=== PATIENT | male | born 1970 | race Caucasian/White ===

== ENCOUNTER 2019-04-15 15:30 | Observation (INO) | payer BC ==
[~2019-04-15] VITALS: Ht 177.8 cm; Wt 86.2 kg
--- NOTE | 2019-04-15 15:40 | Emergency Room Report ---
History of Present Illness General Chief Complaint: Chest Pain Source: Patient, Friend, EMS Present Illness HPI Patient presents with chest pain and alteration in speech. He just finished cardio workout and stepped outside and smoked some cannabis. He felt palpitations some pressure in his chest and had difficulty speaking for a couple of seconds. He denies headache during that time. Paramedics were summoned. His heart rate was 140 at that time. It started slowing down in route. He was not complaining about chest pain until in route and they did not give him aspirin or nitrates. He denies use of SEDs. He has slight tingling in the upper lip on the right-hand side. They claim that the cannabis is not a new batch and it's bought retail. They deny other drugs at this time. Twelve- lead in the field was sinus tachycardia Patient on low-dose lisinopril and Crestor. He denies smoking cigarettes. No family history or diabetes. No fevers, chills, sore throat, cough, nausea, vomiting diarrhea, diarrhea or dysuria joint pain. No family history of blood clots. No recent history of immobilization. No calf pain or edema. Allergies: Coded Allergies: No Known Allergies (Unverified , 04/15/19) Patient History Past Medical History: see triage record Social History: Reports: drug use; Denies: smoking Social History Narrative felt cutter Reviewed Nursing Documentation: PMH: Agreed; PSxH: Agreed Nursing Documentation-PMH Past Medical History: No Stated History Review of Systems All Other Systems: negative except mentioned in HPI Physical Exam Vital Signs Date Time Temp Pulse Resp B/P (MAP) Pulse Ox O2 Delivery O2 Flow Rate FiO2 04/15/19 15:31 98.1 122 18 166/87 (113) 99 Room Air Sp02 EP Interpretation: reviewed, normal General Appearance: alert, GCS 15 Head: normocephalic Eyes: bilateral eye PERRL, bilateral eye EOMI, bilateral eye Scleral Injection ENT: moist mucus membranes Neck: supple Respiratory: lungs clear, normal breath sounds Cardiovascular #1: no edema, tachycardia Cardiovascular #2: 2+ radial (R) Gastrointestinal: normal inspection, normal bowel sounds, non tender, no mass, non-distended Genitourinary: no CVA tenderness Musculoskeletal: back normal, normal range of motion, no calf tenderness, gait/ station normal, Maia's Sign negative Neurologic: alert, motor strength/tone normal, 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 Differential includes acute myocardial infarction, TIA, arrhythmia, acute coronary syndrome, electrolyte imbalance, substance ingestion, anxiety amongst others. Patient evaluated EKG, chest x-ray, CT the head and labs. Patient will receive IV hydration and aspirin. The patient is placed on a allergy specialist. EKG sinus tachycardia 123 with voltage criteria for LVH. Nonspecific ST-T wave changes. Labs remarkable for leukocytosis, renal insufficiency, minimally low potassium, mild elevated CK and tox screen positive for THC. Patient request treatment with Ativan. Improved after Ativan however still tachycardic. Patient requests to be able to be discharged. Due to the symptom complex and persistent tachycardia and abnormal labs patient admitted for observation. Laboratory Tests Test 04/15/19 15:35 04/15/19 15:40 04/15/19 19:20 White Blood Count 16.1 K/UL (4.8-10.8) H Red Blood Count 5.60 M/UL (4.70-6.10) Hemoglobin 16.9 G/DL (14.2-18.0) Hematocrit 49.8 % (42.0-52.0) Mean Corpuscular Volume 89 FL (80-99) Mean Corpuscular Hemoglobin 30.1 PG (27.0-31.0) Mean Corpuscular Hemoglobin Concent 33.9 G/DL (32.0-36.0) Red Cell Distribution Width 13.9 % (11.6-14.8) Platelet Count 194 K/UL (150-450) Mean Platelet Volume 7.9 FL (6.5-10.1) Neutrophils (%) (Auto) 52.6 % (45.0-75.0) Lymphocytes (%) (Auto) 36.5 % (20.0-45.0) Monocytes (%) (Auto) 8.2 % (1.0-10.0) Eosinophils (%) (Auto) 1.6 % (0.0-3.0) Basophils (%) (Auto) 1.1 % (0.0-2.0) Prothrombin Time 11.0 SEC (9.30-11.50) Prothrombin Time INR 1.0 (0.9-1.1) Activated Partial Thromboplast Time 23 SEC (23-33) Sodium Level 143 MMOL/L (136-145) Potassium Level 3.3 MMOL/L (3.5-5.1) L Chloride Level 102 MMOL/L (98-107) Carbon Dioxide Level 26 MMOL/L (21-32) Anion Gap 15 mmol/L (5-15) Blood Urea Nitrogen 23 mg/dL (7-18) H Creatinine 1.5 MG/DL (0.55-1.30) H Estimate Glomerular Filtration Rate 50.2 mL/min (>60) Glucose Level 104 MG/DL (74-106) Calcium Level 9.4 MG/DL (8.5-10.1) Total Bilirubin 0.5 MG/DL (0.2-1.0) Aspartate Amino Transferase (AST) 26 U/L (15-37) Alanine Aminotransferase (ALT) 41 U/L (12-78) Alkaline Phosphatase 65 U/L (46-116) Total Creatine Kinase 456 U/L (26-308) H Troponin I 0.000 ng/mL (0.000-0.056) 0.028 ng/mL (0.000-0.056) Pro-B-Type Natriuretic Peptide 19 pg/mL (0-125) Total Protein 7.4 G/DL (6.4-8.2) Albumin 3.9 G/DL (3.4-5.0) Globulin 3.5 g/dL Albumin/Globulin Ratio 1.1 (1.0-2.7) Urine Color Yellow Urine Appearance Slightly cloudy Urine pH 5 (4.5-8.0) Urine Specific [place] 1.020 (1.005-1.035) Urine Protein 2+ (NEGATIVE) H Urine Glucose (UA) Negative (NEGATIVE) Urine Ketones 1+ (NEGATIVE) H Urine Blood 1+ (NEGATIVE) H Urine Nitrite Negative (NEGATIVE) Urine Bilirubin Negative (NEGATIVE) Urine Urobilinogen 1 MG/DL (0.0-1.0) H Urine Leukocyte Esterase 1+ (NEGATIVE) H Urine RBC 0-2 /HPF (0 - 0) H Urine WBC 2-4 /HPF (0 - 0) Urine Squamous Epithelial Cells Occasional /LPF Urine Bacteria Few /HPF (NONE) Urine Mucus Moderate /LPF (NONE/OCC) H Urine Opiates Screen Negative (NEGATIVE) Urine Barbiturates Screen Negative (NEGATIVE) Phencyclidine (PCP) Screen Negative (NEGATIVE) Urine Amphetamines Screen Negative (NEGATIVE) Urine Benzodiazepines Screen Negative (NEGATIVE) Urine Cocaine Screen Negative (NEGATIVE) Urine Marijuana (THC) Screen Positive (NEGATIVE) H Magnesium Level 1.5 MG/DL (1.8-2.4) L EKG Diagnostic Results Rate: tachycardiac Rhythm: NSR ST Segments: no acute changes - LVH and nonspecific ST-T wave changes Rhythm Strip Diag. Results EP Interpretation: yes Rhythm: no PVC's, no ectopy, other - Sinus tachycardia Chest X-Ray Diagnostic Results Chest X-Ray Diagnostic Results : Chest X-Ray Ordered: Yes # of Views/Limited/Complete: 1 View Indication: Chest Pain EP Interpretation: Yes Interpretation: no consolidation, no effusion, no pneumothorax Impression: No acute disease Electronically Signed by: Electronically signed by Lavelle Polanco MD Last Vital Signs Date Time Temp Pulse Resp B/P (MAP) Pulse Ox O2 Delivery O2 Flow Rate FiO2 04/15/19 21:00 Room Air 04/15/19 20:00 83 04/15/19 18:20 98.1 18 139/81 (100) 99 At admission patient's heart rate 112 Status: improved Disposition: PLACE IN OBSERVATION Condition: Serious Lavelle Polanco MD Apr 15, 2019 15:40
[2019-04-15 15:44] VITALS: BP 166/87
[2019-04-15 15:50] LABS: BASOPHILS % (AUTO) 1.1 % (0.0-2.0); EOSINOPHILS % (AUTO) 1.6 % (0.0-3.0); HEMATOCRIT 49.8 % (42.0-52.0); HEMOGLOBIN 16.9 G/DL (14.2-18.0); LYMPHOCYTES % (AUTO) 36.5 % (20.0-45.0); MEAN CORPUSCULAR VOLUME 89 FL (80-99); MONOCYTES % (AUTO) 8.2 % (1.0-10.0); NEUTROPHILS % (AUTO) 52.6 % (45.0-75.0); PLATELET COUNT 194 K/UL (150-450); RED CELL DISTRIBUTION WIDTH 13.9 % (11.6-14.8); WHITE BLOOD COUNT 16.1 K/UL (4.8-10.8)
[2019-04-15] MEDS ORDERED: LORazepam Inj 2mg/ml 1ml IV ONE (16:00)
[2019-04-15 16:03] LABS: BILIRUBIN, URINE NEGATIVE (NEGATIVE); GLUCOSE, URINE (UA) NEGATIVE (NEGATIVE); KETONES,URINE 1+ (NEGATIVE); LEUKOCYTE ESTERASE ,URINE 1+ (NEGATIVE); NITRITE,URINE NEGATIVE (NEGATIVE); PH,URINE 5 (4.5-8.0); PROTEIN,URINE 2+ (NEGATIVE); UROBILINOGEN,URINE 1 MG/DL (0.0-1.0)
[2019-04-15 16:09] LABS: APPEARANCE,URINE SLIGHTLY CLOUDY; COLOR,URINE YELLOW
[2019-04-15 16:15] LABS: ANION GAP 15 mmol/L (5-15); BLOOD UREA NITROGEN 23 mg/dL (7-18); CALCIUM 9.4 MG/DL (8.5-10.1); CARBON DIOXIDE 26 MMOL/L (21-32); CHLORIDE 102 MMOL/L (98-107); CREATININE 1.5 MG/DL (0.55-1.30); POTASSIUM 3.3 MMOL/L (3.5-5.1); SODIUM 143 MMOL/L (136-145)
[2019-04-15 16:26] LABS: ALANINE AMINOTRANSFERASE 41 U/L (12-78); ALBUMIN 3.9 G/DL (3.4-5.0); ALBUMIN/GLOBULIN RATIO 1.1 (1.0-2.7); ALKALINE PHOSPHATASE 65 U/L (46-116); ASPARTATE AMINO TRANSFERASE 26 U/L (15-37); BILIRUBIN,TOTAL 0.5 MG/DL (0.2-1.0); CREATINE KINASE 456 U/L (26-308)
[2019-04-15 16:34] VITALS: BP 150/88
[2019-04-15 17:04] VITALS: BP 136/74
--- NOTE | 2019-04-15 17:16 | Diagnostic Imaging Report ---
Indications: Headache, alteration speech Technique: Spiral acquisitions obtained through the brain. Angled axial and coronal 5 x 5 mm slices were reconstructed. Total dose length product 1018 mGycm. CTDI vol(s) 53 mGy. Dose reduction achieved using automated exposure control Comparison: None. Findings: No acute intracranial hemorrhage or edema. No mass effect nor midline shift. Normal meeks-white differentiation. Normal size ventricles and extra axial CSF spaces. The calvarium is intact. Visualized orbits are unremarkable. There is mucosal thickening of the left maxillary sinus Impression: Negative for acute intracranial bleed or mass effect Minimal sinus disease The CT scanner at [facility] is accredited by the [employer] and the scans are performed using protocols designed to limit radiation exposure to as low as reasonably achievable to attain images of sufficient resolution adequate for diagnostic evaluation.
[2019-04-15] MEDS ORDERED: CRESTOR10 M2 ORAL (17:28)
[2019-04-15] MEDS ORDERED: PROSCAR5 MG ORAL (17:28)
[2019-04-15] MEDS ORDERED: PRESERVISION L1 EACH PO (17:28)
[2019-04-15] MEDS ORDERED: COQ-10100 M1 PO (17:28)
[2019-04-15 18:20] VITALS: BP 139/81
[2019-04-15] MEDS ORDERED: Morphine Sulfate 2mg/ml Inj(IV/IM USE ONLY) IVP PRN (18:45)
[2019-04-15] MEDS ORDERED: Milk of Magnesia 30ml Ud ORAL PRN (18:45)
[2019-04-15] MEDS ORDERED: Nitroglycerin Subl 0.4mg tab SL PRN (18:45)
--- NOTE | 2019-04-15 19:47 | History and Physical ---
History of Present Illness General Reason for Hospitalization: Chest Pain Present Illness HPI 48-year-old male with PMH of mixed dyslipidemia, otherwise healthy who presents to ED for tachycardia, CP and aphasia. Patient was in his usual state of health when he went to workout at the gym, was lifting weights, then proceeded to smoke marijuana after he worked out. He had a brief episode of a aphasia now resolved, then subsequent tachycardia and chest pain. He called EMS and was found to have HR of 140s. In the ED, HR 120s and upon arrival to floor was in the high 90s. Patient denies any further episodes of CP, denied S OB, diaphoresis or previous episodes in the past. Patient states he usually smokes marijuana nightly to help him sleep and has never had an episode like this in the past. States he usually gets his marijuana from the same vendor. Patient does note family history is significant for grandfather having triple bypass CABG in his 50s. Patient currently denies any numbness, tingling, LALA, vision changes, S OB, abdominal pain, dysuria, constipation. 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 marijuana qhs Allergies: NKDA Allergies: Coded Allergies: No Known Allergies (Unverified , 04/15/19) Medication History Scheduled Finasteride* (Proscar*), 5 MG ORAL DAILY, (Reported) Rosuvastatin Calcium* (Crestor*), 10 MG ORAL DAILY, (Reported) Ubidecarenone (Coq-10), 200 MG PO TWICE A DAY, (Reported) Vit C/Rosario Ac/Lut/Copper/Znox (Preservision Lutein Softgel), 1 EACH PO DAILY, ( Reported) Patient History Healthcare decision maker Resuscitation status Advanced Directive on File No Review of Systems Constitutional: Denies: no symptoms, see HPI, chills, sweats, fever, malaise, weakness, other Eye: Denies: no symptoms, see HPI, eye pain, blurred vision, tearing, double vision, nose pain, nose congestion, acuity changes, discharge, other ENT: Denies: no symptoms, see HPI, ear pain, ear discharge, nose pain, nose congestion, throat pain, throat swelling, mouth pain, hearing loss, nasal discharge, other Respiratory: Denies: no symptoms, see HPI, cough, orthopnea, shortness of breath, stridor, wheezing, LUX, sputum, other Cardiovascular: Denies: no symptoms, see HPI, chest pain, edema, palpitations, syncope, PND, other Gastrointestinal: Denies: no symptoms, see HPI, abdominal pain, constipation, diarrhea, nausea, vomiting, melena, hematemesis, other Genitourinary: Denies: no symptoms, see HPI, discharge, dysuria, frequency, hematuria, pain, retention, incontinence, urgency, vag bleed/dc, other Musculoskeletal: Denies: no symptoms, see HPI, back pain, gout, joint pain, joint swelling, muscle pain, muscle stiffness, other Skin: Denies: no symptoms, see HPI, rash, change in color, change in hair/nails , dryness, lesions, other Psychiatric: Denies: no symptoms, see HPI, prior hx, anxiety, depressed feelings, emotional problems, SI, HI, hallucinations, other Neurological: Denies: no symptoms, see HPI, headache, numbness, paresthesia, seizure, tingling, tremors, focal weakness, syncope, dizziness, other Endocrine: Denies: no symptoms, see HPI, excessive sweating, flushing, intolerance to temperature, increased thirst, increased urine, unexplained weight loss, other Physical Exam Last 24 Hour Vital Signs Date Time Temp Pulse Resp B/P (MAP) Pulse Ox O2 Delivery O2 Flow Rate FiO2 04/15/19 18:20 98.1 86 18 139/81 (100) 99 04/15/19 17:04 98.1 99 18 136/74 99 Room Air 04/15/19 16:34 98.1 104 18 150/88 99 Room Air 04/15/19 15:44 122 18 Room Air 04/15/19 15:44 98.1 125 18 166/87 99 Room Air 04/15/19 15:31 98.1 122 18 166/87 (113) 99 Room Air Laboratory Tests Test 04/15/19 15:35 04/15/19 15:40 04/15/19 19:20 White Blood Count 16.1 K/UL (4.8-10.8) H Red Blood Count 5.60 M/UL (4.70-6.10) Hemoglobin 16.9 G/DL (14.2-18.0) Hematocrit 49.8 % (42.0-52.0) Mean Corpuscular Volume 89 FL (80-99) Mean Corpuscular Hemoglobin 30.1 PG (27.0-31.0) Mean Corpuscular Hemoglobin Concent 33.9 G/DL (32.0-36.0) Red Cell Distribution Width 13.9 % (11.6-14.8) Platelet Count 194 K/UL (150-450) Mean Platelet Volume 7.9 FL (6.5-10.1) Neutrophils (%) (Auto) 52.6 % (45.0-75.0) Lymphocytes (%) (Auto) 36.5 % (20.0-45.0) Monocytes (%) (Auto) 8.2 % (1.0-10.0) Eosinophils (%) (Auto) 1.6 % (0.0-3.0) Basophils (%) (Auto) 1.1 % (0.0-2.0) Prothrombin Time 11.0 SEC (9.30-11.50) Prothromb Time International Ratio 1.0 (0.9-1.1) Activated Partial Thromboplast Time 23 SEC (23-33) Sodium Level 143 MMOL/L (136-145) Potassium Level 3.3 MMOL/L (3.5-5.1) L Chloride Level 102 MMOL/L (98-107) Carbon Dioxide Level 26 MMOL/L (21-32) Anion Gap 15 mmol/L (5-15) Blood Urea Nitrogen 23 mg/dL (7-18) H Creatinine 1.5 MG/DL (0.55-1.30) H Estimat Glomerular Filtration Rate 50.2 mL/min (>60) Glucose Level 104 MG/DL (74-106) Calcium Level 9.4 MG/DL (8.5-10.1) Total Bilirubin 0.5 MG/DL (0.2-1.0) Aspartate Amino Transf (AST/SGOT) 26 U/L (15-37) Alanine Aminotransferase (ALT/SGPT) 41 U/L (12-78) Alkaline Phosphatase 65 U/L (46-116) Total Creatine Kinase 456 U/L (26-308) H Troponin I 0.000 ng/mL (0.000-0.056) Pending Pro-B-Type Natriuretic Peptide 19 pg/mL (0-125) Total Protein 7.4 G/DL (6.4-8.2) Albumin 3.9 G/DL (3.4-5.0) Globulin 3.5 g/dL Albumin/Globulin Ratio 1.1 (1.0-2.7) Urine Color Yellow Urine Appearance Slightly cloudy Urine pH 5 (4.5-8.0) Urine Specific [place] 1.020 (1.005-1.035) Urine Protein 2+ (NEGATIVE) H Urine Glucose (UA) Negative (NEGATIVE) Urine Ketones 1+ (NEGATIVE) H Urine Blood 1+ (NEGATIVE) H Urine Nitrite Negative (NEGATIVE) Urine Bilirubin Negative (NEGATIVE) Urine Urobilinogen 1 MG/DL (0.0-1.0) H Urine Leukocyte Esterase 1+ (NEGATIVE) H Urine RBC 0-2 /HPF (0 - 0) H Urine WBC 2-4 /HPF (0 - 0) Urine Squamous Epithelial Cells Occasional /LPF Urine Bacteria Few /HPF (NONE) Urine Mucus Moderate /LPF (NONE/OCC) H Urine Opiates Screen Negative (NEGATIVE) Urine Barbiturates Screen Negative (NEGATIVE) Phencyclidine (PCP) Screen Negative (NEGATIVE) Urine Amphetamines Screen Negative (NEGATIVE) Urine Benzodiazepines Screen Negative (NEGATIVE) Urine Cocaine Screen Negative (NEGATIVE) Urine Marijuana (THC) Screen Positive (NEGATIVE) H Magnesium Level Pending Height (Feet): 5 Height (Inches): 10.00 Weight (Pounds): 190 Medications Current Medications Medications (Trade) Dose Ordered Sig/Toni Route PRN Reason Start Time Stop Time Status Last Admin Dose Admin Acetaminophen (Tylenol) 650 mg Q4H PRN ORAL Mild Pain (Pain Scale 1-3) 04/15/19 18:45 05/15/19 18:44 Bisacodyl (Dulcolax) 10 mg HSPRN PRN RECTAL Constipation 04/15/19 18:45 05/15/19 18:44 Dextrose (Dextrose 50%) 25 ml Q30M PRN IV Hypoglycemia 04/15/19 18:45 05/15/19 18:44 Dextrose (Dextrose 50%) 50 ml Q30M PRN IV Hypoglycemia 04/15/19 18:45 05/15/19 18:44 Hydralazine HCl (Apresoline) 10 mg Q4H PRN IV For High Blood Pressure 04/15/19 18:45 05/15/19 18:44 Magnesium Hydroxide (Mom) 30 ml HSPRN PRN ORAL Constipation 04/15/19 18:45 05/15/19 18:44 Morphine Sulfate (Morphine Sulfate) 2 mg Q2H PRN IVP For Pain 04/15/19 18:45 04/22/19 18:44 Nitroglycerin (Ntg) 0.4 mg Q5M X 3 DOSES PRN SL Prn Chest Pain 04/15/19 18:45 05/15/19 18:44 Ondansetron HCl (Zofran) 4 mg Q6H PRN IVP Nausea & Vomiting 04/15/19 18:45 05/15/19 18:44 Potassium Chloride (K-Dur) 20 meq ONCE ORAL 04/15/19 19:00 04/15/19 21:00 Sodium Chloride 1,000 ml @ 75 mls/hr [id number] IV 04/15/19 19:00 04/16/19 18:59 Objective Narrative General: WDWN male, in NAD, A&O x 3 HEENT: NCAT, EOMi, PEERLA, nares patent and no symmetrical, no tonsillar exudates, mucous membranes moist CV: RRR, no murmurs, rubs, or gallops Pulm: CTAB, No wheezes, rhonchi, or rales, no accessory muscle usage or conversational dyspnea GI: Soft, nontender, nondistended, bowel sounds present Neuro: CN 2-12 grossly intact bilaterally, no focal signs. Ext: No lower extremity edema bilaterally Skin: no rashes lesions or ulcers Msk: Joints symmetrical in upper extremity and lower extremity bilaterally, no joint swelling. No reproducible pain upon anterior chest wall palpation Lymph: No lymphadenopathy in upper extremity and lower extremity Assessment/Plan Assessment/Plan: 48-year-old male with PMH of mixed dyslipidemia, otherwise healthy who presents to ED for tachycardia, CP and aphasia. In the ED, troponin negative x1, patient noted with mild leukocytosis, WBC 16, and mild FLAQUITO with Cr 1.5, CK 456. #Chest pain/palpitations Admit to telemetry, obs Rule out TN May be multifactorial/substance induced U tox positive for marijuana EKG: Sinus tach trop negative x1, cont to monitor trops x2 ASA nitro PRN for chest pain Holding statin 2/2 elevated CK carotid US ordered Cardio Consulted given family hx, Dr. Izaguirre, recs appreciated #Aphasia - resolved likely substance induced U tox positive for marijuana CT Head negative for acute process Neuro checks cont. to monitor #FLAQUITO likely 2/2 dehydration given pt's hx (was working out) Cr 1.5 cont. IVF recheck in AM holding home lisinopril 5 mg for now avoid nephrotoxic meds #Mixed Dyslipidemia holding home statin, crestor 10 mg, 2/2 elevated CK lipid panel in AM #elevated CK not within rhabdo range, 456 on admission likely 2/2 to dehydration given pt hx (recent workout and has not been drinking fluids) IVF cont. to monitor DVT ppx: SCDs, encourage ambulation Time spent 70 mins, >50% time spent pt counseling, coordination of care Magaly Garcia M.D. Apr 15, 2019 19:47
[2019-04-16 07:51] LABS: BASOPHILS % (AUTO) 1.2 % (0.0-2.0); EOSINOPHILS % (AUTO) 2.9 % (0.0-3.0); HEMATOCRIT 44.5 % (42.0-52.0); HEMOGLOBIN 16.1 G/DL (14.2-18.0); LYMPHOCYTES % (AUTO) 30.6 % (20.0-45.0); MEAN CORPUSCULAR VOLUME 87 FL (80-99); MONOCYTES % (AUTO) 8.9 % (1.0-10.0); NEUTROPHILS % (AUTO) 56.4 % (45.0-75.0); PLATELET COUNT 143 K/UL (150-450); RED BLOOD COUNT 5.12 M/UL (4.70-6.10); RED CELL DISTRIBUTION WIDTH 12.9 % (11.6-14.8)
[2019-04-16 08:00] VITALS: BP 126/73
[2019-04-16 08:29] LABS: ANION GAP 8 mmol/L (5-15); BLOOD UREA NITROGEN 16 mg/dL (7-18); CARBON DIOXIDE 30 MMOL/L (21-32); CHLORIDE 109 MMOL/L (98-107); CHOLESTEROL 109 MG/DL (< 200); CREATININE 1.2 MG/DL (0.55-1.30); HDL CHOLESTEROL 35 MG/DL (40-60); POTASSIUM 4.1 MMOL/L (3.5-5.1); SODIUM 147 MMOL/L (136-145); TRIGLYCERIDES 41 MG/DL (30-150)
--- NOTE | 2019-04-16 10:33 | Diagnostic Imaging Report ---
. Indication: Chest pain Technique: One view of the chest Comparison: none Findings: Lungs and pleural spaces are clear. Heart size is normal. Impression: No acute process
[2019-04-16 12:00] VITALS: BP 127/77
--- NOTE | 2019-04-16 12:14 | Diagnostic Imaging Report ---
Indication: Aphasia Technique: sagittal T1 fast spin echo, axial T1 FLAIR, axial T2 FLAIR, axial T2 FS PROPELLER, axial T2* GRE, axial diffusion weighted images. ADC and exponential ADC maps generated Comparison: none Findings: No abnormal areas of restricted diffusion to suggest acute infarction. No acute hemorrhage or edema. No mass effect nor midline shift. Normal size ventricles and extra axial CSF spaces. There is evidence of sinus disease involving the bilateral maxillary, right sphenoid sinus. The orbits are unremarkable. The vascular flow voids are preserved. Impression: Negative for acute intracranial bleed, mass effect, or infarct Sinus disease
--- NOTE | 2019-04-16 12:25 | Diagnostic Imaging Report ---
Indication: Chest pain, aphasia, headache, speech alteration Technique: Grayscale and duplex images of the extracranial carotid circulation Comparison: none Findings: Bilaterally, grayscale and duplex images demonstrate no significant atherosclerotic plaquing. Normal Doppler flow velocities and waveforms. Patent bilateral vertebral arteries, antegrade flow Impression: Negative All stenosis was measured based on the NASCET criteria. Velocity criteria are extrapolated from diameter data as defined by the Society of radiologists in ultrasound consensus conference. Radiology 2003:229; [id number]
--- NOTE | 2019-04-16 12:31 | General Progress Note ---
Assessment/Plan Problem List: (1) Elevated CK ICD Codes: R74.8 - Abnormal levels of other serum enzymes SNOMED: 928748250, [id number] (2) Chest pain ICD Codes: R07.9 - Chest pain, unspecified SNOMED: 55095070, 784780256 Qualifiers: Qualified Codes: R07.9 - Chest pain, unspecified (3) FLAQUITO (acute kidney injury) ICD Codes: N17.9 - Acute kidney failure, unspecified SNOMED: 7191697, 52666925 Status: doing well Assessment/Plan: 48-year-old male with PMH of mixed dyslipidemia, otherwise healthy who presents to ED for tachycardia, CP and aphasia. In the ED, troponin negative x1, patient noted with mild leukocytosis, WBC 16, and mild FLAQUITO with Cr 1.5, CK 456. #Chest pain/palpitations continue telemetry ACS ruled out May be multifactorial/substance induced U tox positive for marijuana cont ASA nitro PRN for chest pain Holding statin 2/2 elevated CK Cardiology consulted, stress echo for tomorrow. NPO after MN #Aphasia - resolved likely substance induced U tox positive for marijuana CT Head negative for acute process Neuro checks Obtain MRI brain #FLAQUITO, improved renal function recheck in AM holding home lisinopril 5 mg for now avoid nephrotoxic meds #Mixed Dyslipidemia holding home statin, crestor 10 mg, 2/2 elevated CK lipid panel reviewed #elevated CK not within rhabdo range, 456 on admission likely 2/2 to dehydration given pt hx (recent workout and has not been drinking fluids) IVF cont. to monitor DVT ppx: SCDs, encourage ambulation Time spent 35 mins, >50% time spent pt counseling, coordination of care Subjective Date patient seen: Apr 16, 2019 Time patient seen: 08:00 Constitutional: Denies: chills, fever HEENT: Denies: eye pain Cardiovascular: Denies: chest pain, edema Respiratory: Denies: cough Gastrointestinal/Abdominal: Denies: abdomen distended Genitourinary: Denies: burning Neurologic/Psychiatric: Denies: anxiety Hematologic/Lymphatic: Denies: anemia Allergies: Coded Allergies: No Known Allergies (Unverified , 04/15/19) Subjective Follow up for chest pain and transient aphasia. Speech has normalized, mild chest discomfort reported. Objective Last 24 Hour Vital Signs Date Time Temp Pulse Resp B/P (MAP) Pulse Ox O2 Delivery O2 Flow Rate FiO2 04/16/19 12:00 98.2 63 18 127/77 (94) 99 04/16/19 09:00 Room Air 04/16/19 08:00 97.8 54 18 126/73 (90) 97 04/16/19 08:00 74 04/16/19 04:00 50 04/16/19 00:00 58 04/15/19 21:00 Room Air 04/15/19 20:00 83 04/15/19 19:20 Room Air 04/15/19 18:20 98.1 86 18 139/81 (100) 99 04/15/19 18:05 98.1 99 18 136/74 99 Room Air 04/15/19 17:04 98.1 99 18 136/74 99 Room Air 04/15/19 16:34 98.1 104 18 150/88 99 Room Air 04/15/19 15:44 122 18 Room Air 04/15/19 15:44 98.1 125 18 166/87 99 Room Air 04/15/19 15:31 98.1 122 18 166/87 (113) 99 Room Air Intake and Output 04/15/19 04/16/19 19:00 07:00 # Voids 1 Laboratory Tests 04/15/19 15:35: White Blood Count 16.1H, Red Blood Count 5.60, Hemoglobin 16.9, Hematocrit 49.8 , Mean Corpuscular Volume 89, Mean Corpuscular Hemoglobin 30.1, Mean Corpuscular Hemoglobin Concent 33.9, Red Cell Distribution Width 13.9, Platelet Count 194, Mean Platelet Volume 7.9, Neutrophils (%) (Auto) 52.6, Lymphocytes (% ) (Auto) 36.5, Monocytes (%) (Auto) 8.2, Eosinophils (%) (Auto) 1.6, Basophils ( %) (Auto) 1.1, Prothrombin Time 11.0, Prothromb Time International Ratio 1.0, Activated Partial Thromboplast Time 23, Sodium Level 143, Potassium Level 3.3L, Chloride Level 102, Carbon Dioxide Level 26, Anion Gap 15, Blood Urea Nitrogen 23H, Creatinine 1.5H, Estimat Glomerular Filtration Rate 50.2, Glucose Level 104 , Calcium Level 9.4, Total Bilirubin 0.5, Aspartate Amino Transf (AST/SGOT) 26, Alanine Aminotransferase (ALT/SGPT) 41, Alkaline Phosphatase 65, Total Creatine Kinase 456H, Troponin I 0.000, Pro-B-Type Natriuretic Peptide 19, Total Protein 7.4, Albumin 3.9, Globulin 3.5, Albumin/Globulin Ratio 1.1 04/15/19 15:40: Urine Color Yellow, Urine Appearance Slightly cloudy, Urine pH 5, Urine Specific [place] 1.020, Urine Protein 2+H, Urine Glucose (UA) Negative, Urine Ketones 1+H, Urine Blood 1+H, Urine Nitrite Negative, Urine Bilirubin Negative, Urine Urobilinogen 1H, Urine Leukocyte Esterase 1+H, Urine RBC 0-2H, Urine WBC 2 -4, Urine Squamous Epithelial Cells Occasional, Urine Bacteria Few, Urine Mucus ModerateH, Urine Opiates Screen Negative, Urine Barbiturates Screen Negative, Phencyclidine (PCP) Screen Negative, Urine Amphetamines Screen Negative, Urine Benzodiazepines Screen Negative, Urine Cocaine Screen Negative, Urine Marijuana (THC) Screen PositiveH 04/15/19 19:20: Troponin I 0.028, Magnesium Level 1.5L 04/16/19 07:15: White Blood Count 6.0#, Red Blood Count 5.12, Hemoglobin 16.1, Hematocrit 44.5, Mean Corpuscular Volume 87, Mean Corpuscular Hemoglobin 31.4H, Mean Corpuscular Hemoglobin Concent 36.1H, Red Cell Distribution Width 12.9, Platelet Count 143L , Mean Platelet Volume 6.5, Neutrophils (%) (Auto) 56.4, Lymphocytes (%) (Auto) 30.6, Monocytes (%) (Auto) 8.9, Eosinophils (%) (Auto) 2.9, Basophils (%) (Auto ) 1.2, Sodium Level 147H, Potassium Level 4.1, Chloride Level 109H, Carbon Dioxide Level 30, Anion Gap 8, Blood Urea Nitrogen 16, Creatinine 1.2, Estimat Glomerular Filtration Rate > 60, Glucose Level 93, Calcium Level 9.0, Troponin I 0.022, Triglycerides Level 41, Cholesterol Level 109, LDL Cholesterol 63, HDL Cholesterol 35L, Cholesterol/HDL Ratio 3.1L Height (Feet): 5 Height (Inches): 10.00 Weight (Pounds): 190 General Appearance: no apparent distress, alert Neck: normal alignment, supple, normal inspection Cardiovascular: normal rate, regular rhythm Respiratory/Chest: lungs clear, normal breath sounds Abdomen: non tender, soft 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
--- NOTE | 2019-04-16 13:11 | Consultation ---
History of Present Illness General Date patient seen: Apr 16, 2019 Time patient seen: 13:07 Chief Complaint: Chest Pain Present Illness HPI 48-year-old male with PMH of mixed dyslipidemia, otherwise healthy who presents to ED for tachycardia, CP and aphasia. Patient was in his usual state of health when he went to workout at the gym, was lifting weights, then proceeded to smoke marijuana after he worked out. He had a brief episode of a aphasia now resolved, then subsequent tachycardia and chest pain. He called EMS and was found to have HR of 140s. In the ED, HR 120s and upon arrival to floor was in the high 90s. Patient denies any further episodes of CP, denied S OB, diaphoresis or previous episodes in the past. Patient states he usually smokes marijuana nightly to help him sleep and has never had an episode like this in the past. States he usually gets his marijuana from the same vendor. Patient does note family history is significant for grandfather having triple bypass CABG in his 50s. Patient currently denies any numbness, tingling, LALA, vision changes, S OB, abdominal pain, dysuria, constipation. Allergies: Coded Allergies: No Known Allergies (Unverified , 04/15/19) Medication History Scheduled Finasteride* (Proscar*), 5 MG ORAL DAILY, (Reported) Rosuvastatin Calcium* (Crestor*), 10 MG ORAL DAILY, (Reported) Ubidecarenone (Coq-10), 200 MG PO TWICE A DAY, (Reported) Vit C/Rosario Ac/Lut/Copper/Znox (Preservision Lutein Softgel), 1 EACH PO DAILY, ( Reported) Patient History Healthcare decision maker Resuscitation status Advanced Directive on File No Review of Systems Constitutional: Reports: no symptoms Eye: Reports: no symptoms ENT: Reports: no symptoms Respiratory: Reports: no symptoms Cardiovascular: Reports: chest pain, palpitations Gastrointestinal: Reports: no symptoms Genitourinary: Reports: no symptoms Musculoskeletal: Reports: no symptoms Skin: Reports: no symptoms Psychiatric: Reports: no symptoms Neurological: Reports: no symptoms Endocrine: Reports: no symptoms Hematologic/Lymphatic: Reports: no symptoms Physical Exam General Appearance: no apparent distress, alert Lines, tubes and drains: peripheral HEENT: normocephalic, atraumatic, PERRL Neck: non-tender, normal alignment, supple, normal inspection Respiratory/Chest: chest wall non-tender, lungs clear Cardiovascular/Chest: normal peripheral pulses, normal rate, regular rhythm Abdomen: normal bowel sounds, non tender, soft, no organomegaly, no mass Extremities: normal range of motion, non-tender, normal inspection, no calf tenderness, normal capillary refill, non-pitting Skin Exam: normal pigmentation, warm/dry, cyanotic 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, no motor/sensory deficits Last 24 Hour Vital Signs Date Time Temp Pulse Resp B/P (MAP) Pulse Ox O2 Delivery O2 Flow Rate FiO2 04/16/19 12:00 81 04/16/19 12:00 98.2 63 18 127/77 (94) 99 04/16/19 09:00 Room Air 04/16/19 08:00 97.8 54 18 126/73 (90) 97 04/16/19 08:00 74 04/16/19 04:00 50 04/16/19 00:00 58 04/15/19 21:00 Room Air 04/15/19 20:00 83 04/15/19 19:20 Room Air 04/15/19 18:20 98.1 86 18 139/81 (100) 99 04/15/19 18:05 98.1 99 18 136/74 99 Room Air 04/15/19 17:04 98.1 99 18 136/74 99 Room Air 04/15/19 16:34 98.1 104 18 150/88 99 Room Air 04/15/19 15:44 122 18 Room Air 04/15/19 15:44 98.1 125 18 166/87 99 Room Air 04/15/19 15:31 98.1 122 18 166/87 (113) 99 Room Air Intake and Output 04/15/19 04/16/19 19:00 07:00 # Voids 1 Laboratory Tests Test 04/15/19 15:35 04/15/19 15:40 04/15/19 19:20 04/16/19 07:15 White Blood Count 16.1 K/UL (4.8-10.8) H 6.0 K/UL (4.8-10.8) # Red Blood Count 5.60 M/UL (4.70-6.10) 5.12 M/UL (4.70-6.10) Hemoglobin 16.9 G/DL (14.2-18.0) 16.1 G/DL (14.2-18.0) Hematocrit 49.8 % (42.0-52.0) 44.5 % (42.0-52.0) Mean Corpuscular Volume 89 FL (80-99) 87 FL (80-99) Mean Corpuscular Hemoglobin 30.1 PG (27.0-31.0) 31.4 PG (27.0-31.0) H Mean Corpuscular Hemoglobin Concent 33.9 G/DL (32.0-36.0) 36.1 G/DL (32.0-36.0) H Red Cell Distribution Width 13.9 % (11.6-14.8) 12.9 % (11.6-14.8) Platelet Count 194 K/UL (150-450) 143 K/UL (150-450) L Mean Platelet Volume 7.9 FL (6.5-10.1) 6.5 FL (6.5-10.1) Neutrophils (%) (Auto) 52.6 % (45.0-75.0) 56.4 % (45.0-75.0) Lymphocytes (%) (Auto) 36.5 % (20.0-45.0) 30.6 % (20.0-45.0) Monocytes (%) (Auto) 8.2 % (1.0-10.0) 8.9 % (1.0-10.0) Eosinophils (%) (Auto) 1.6 % (0.0-3.0) 2.9 % (0.0-3.0) Basophils (%) (Auto) 1.1 % (0.0-2.0) 1.2 % (0.0-2.0) Prothrombin Time 11.0 SEC (9.30-11.50) Prothromb Time International Ratio 1.0 (0.9-1.1) Activated Partial Thromboplast Time 23 SEC (23-33) Sodium Level 143 MMOL/L (136-145) 147 MMOL/L (136-145) H Potassium Level 3.3 MMOL/L (3.5-5.1) L 4.1 MMOL/L (3.5-5.1) Chloride Level 102 MMOL/L (98-107) 109 MMOL/L (98-107) H Carbon Dioxide Level 26 MMOL/L (21-32) 30 MMOL/L (21-32) Anion Gap 15 mmol/L (5-15) 8 mmol/L (5-15) Blood Urea Nitrogen 23 mg/dL (7-18) H 16 mg/dL (7-18) Creatinine 1.5 MG/DL (0.55-1.30) H 1.2 MG/DL (0.55-1.30) Estimat Glomerular Filtration Rate 50.2 mL/min (>60) > 60 mL/min (>60) Glucose Level 104 MG/DL (74-106) 93 MG/DL (74-106) Calcium Level 9.4 MG/DL (8.5-10.1) 9.0 MG/DL (8.5-10.1) Total Bilirubin 0.5 MG/DL (0.2-1.0) Aspartate Amino Transf (AST/SGOT) 26 U/L (15-37) Alanine Aminotransferase (ALT/SGPT) 41 U/L (12-78) Alkaline Phosphatase 65 U/L (46-116) Total Creatine Kinase 456 U/L (26-308) H Troponin I 0.000 ng/mL (0.000-0.056) 0.028 ng/mL (0.000-0.056) 0.022 ng/mL (0.000-0.056) Pro-B-Type Natriuretic Peptide 19 pg/mL (0-125) Total Protein 7.4 G/DL (6.4-8.2) Albumin 3.9 G/DL (3.4-5.0) Globulin 3.5 g/dL Albumin/Globulin Ratio 1.1 (1.0-2.7) Urine Color Yellow Urine Appearance Slightly cloudy Urine pH 5 (4.5-8.0) Urine Specific [place] 1.020 (1.005-1.035) Urine Protein 2+ (NEGATIVE) H Urine Glucose (UA) Negative (NEGATIVE) Urine Ketones 1+ (NEGATIVE) H Urine Blood 1+ (NEGATIVE) H Urine Nitrite Negative (NEGATIVE) Urine Bilirubin Negative (NEGATIVE) Urine Urobilinogen 1 MG/DL (0.0-1.0) H Urine Leukocyte Esterase 1+ (NEGATIVE) H Urine RBC 0-2 /HPF (0 - 0) H Urine WBC 2-4 /HPF (0 - 0) Urine Squamous Epithelial Cells Occasional /LPF Urine Bacteria Few /HPF (NONE) Urine Mucus Moderate /LPF (NONE/OCC) H Urine Opiates Screen Negative (NEGATIVE) Urine Barbiturates Screen Negative (NEGATIVE) Phencyclidine (PCP) Screen Negative (NEGATIVE) Urine Amphetamines Screen Negative (NEGATIVE) Urine Benzodiazepines Screen Negative (NEGATIVE) Urine Cocaine Screen Negative (NEGATIVE) Urine Marijuana (THC) Screen Positive (NEGATIVE) H Magnesium Level 1.5 MG/DL (1.8-2.4) L Triglycerides Level 41 MG/DL (30-150) Cholesterol Level 109 MG/DL (< 200) LDL Cholesterol 63 mg/dL (<100) HDL Cholesterol 35 MG/DL (40-60) L Cholesterol/HDL Ratio 3.1 (3.3-4.4) L Height (Feet): 5 Height (Inches): 10.00 Weight (Pounds): 190 Medications Current Medications Medications (Trade) Dose Ordered Sig/Toni Route PRN Reason Start Time Stop Time Status Last Admin Dose Admin Acetaminophen (Tylenol) 650 mg Q4H PRN ORAL Mild Pain (Pain Scale 1-3) 04/15/19 18:45 05/15/19 18:44 Bisacodyl (Dulcolax) 10 mg HSPRN PRN RECTAL Constipation 04/15/19 18:45 05/15/19 18:44 Dextrose (Dextrose 50%) 25 ml Q30M PRN IV Hypoglycemia 04/15/19 18:45 05/15/19 18:44 Dextrose (Dextrose 50%) 50 ml Q30M PRN IV Hypoglycemia 04/15/19 18:45 05/15/19 18:44 Hydralazine HCl (Apresoline) 10 mg Q4H PRN IV For High Blood Pressure 04/15/19 18:45 05/15/19 18:44 Magnesium Hydroxide (Mom) 30 ml HSPRN PRN ORAL Constipation 04/15/19 18:45 05/15/19 18:44 Morphine Sulfate (Morphine Sulfate) 2 mg Q2H PRN IVP For Pain 04/15/19 18:45 04/22/19 18:44 Nitroglycerin (Ntg) 0.4 mg Q5M X 3 DOSES PRN SL Prn Chest Pain 04/15/19 18:45 05/15/19 18:44 Ondansetron HCl (Zofran) 4 mg Q6H PRN IVP Nausea & Vomiting 04/15/19 18:45 05/15/19 18:44 Sodium Chloride 1,000 ml @ 75 mls/hr [id number] IV 04/15/19 19:00 04/16/19 18:59 04/16/19 08:35 Assessment/Plan Status: stable Assessment/Plan: Assessment/Plan Chest pain - atypical -stress echo ordered given hx of HLD -serial EKG/Troponin negative -Monitor telemetry -Check D dimer re tachycardia -Hold statin -OTC fish oil, red yeast rice, Co Q-10 -Recheck lipid panel in three months after dietary modification -Hold aspirin -Outpatient coronary calcium score -Substance abuse counseling -Echocardiogram FLAQUITO/Rhabdo -IV fluids -Hold BP medications, restart at discharge Lavelle Izaguirre MD Apr 16, 2019 13:11
[2019-04-16 16:00] VITALS: BP 124/79
== END 2019-04-16 22:15 | disposition home or self-care (01) ==
LOC: EDBD 15:30 → EMR 15:45 → 2E 16:50 → INTOOBSV 16:50 → OBSVTOIN 16:50 → EDBEDREQ 17:07
DX: R07.9 Chest pain, unspecified (principal); R47.01 Aphasia; N17.9 Acute kidney failure, unspecified; E86.0 Dehydration; E78.2 Mixed hyperlipidemia; R74.8 Abnormal levels of other serum enzymes
CPT/HCPCS: 36415; 70450; 70551; 71045; 80048; 80053; 80061; 80307; 81003; 82550; 83735; 83880; 84484; 85025; 85610; 85730; 93005; 93880; 96360; 96361; 96365; 96374; 99285; J7030; G0378; J8499